=== PATIENT | male | born 1970 ===

== ENCOUNTER 2020-08-07 13:56 | Outpatient (CLI) | payer MEDICAID ==
[2020-08-07 14:07] VITALS: BP 144/69
--- NOTE | 2020-08-07 16:59 | Consultation ---
DATE OF CONSULTATION: 08/07/2020 REASON FOR CONSULTATION: Referral for iron-deficiency anemia. PAST MEDICAL HISTORY: 1. GERD. 2. HIV. PAST SURGICAL HISTORY: None. MEDICATIONS: Please see medication reconciliation list. FAMILY HISTORY: Brother had hiatal hernia. SOCIAL HISTORY: The patient denies any tobacco, alcohol, or drug use. ALLERGIES: No known drug allergies. REVIEW OF SYSTEMS: Positive for GERD and iron-deficiency anemia. PHYSICAL EXAMINATION: VITAL SIGNS: Temperature 98.1, blood pressure 140/69, pulse 71, respirations 20. Height is 6 feet. Weight is 204. HEENT: Normocephalic and atraumatic. Sclerae anicteric. NECK: Supple. No evidence of obvious lymphadenopathy. CARDIOVASCULAR: Regular rate and rhythm. Plus S1, S2. LUNGS: Decreased breath sounds bilaterally based on the supine exam. ABDOMEN: Soft and nontender. No rebound. No guarding. No peritoneal sign. EXTREMITIES: No cyanosis . ASSESSMENT AND PLAN: The patient is a 50-year-old male with iron-deficiency anemia. Referred for endoscopy and colonoscopy. The patient was given instruction for both. Risks and benefits of procedure was explained to him in detail. We will schedule him as soon as authorization is obtained. Mark Jones M.D. DR: Philippe JOB#: [id number] CC:
== END 2020-08-07 15:56 | disposition home or self-care (01) ==
LOC: PAN 13:56
DX: D50.9 Iron deficiency anemia, unspecified (principal); K21.9 Gastro-esophageal reflux disease without esophagitis; B20 Human immunodeficiency virus [HIV] disease
CPT/HCPCS: 99203